=== PATIENT | male | born 1985 | race Caucasian/White ===

== ENCOUNTER → 2017-11-23 | Outpatient (CLI) | payer BC ==
[~2017-11-23] MED LIST: MULTIVITAMIN1 CTB PO; NATURAL MAGNES200 MG PO; PROBIOTIC-MAJOR PO; VITAMIN B COMPL1 SGL PO; VITAMIN D32000 I1 PO
== END ==
LOC: COL.RAD 08:15
DX: R19.09 Other intra-abdominal and pelvic swelling, mass and lump (principal)

== ENCOUNTER 2019-01-22 15:11 | Emergency (ER) | payer BC ==
[~2019-01-22] VITALS: Ht 175.3 cm; Wt 75.0 kg
[2019-01-22 15:25] VITALS: BP 131/78; TEMP 97.2
[2019-01-22] MEDS ORDERED: ZYRTEC 10MG10 MG PO (16:02)
[2019-01-22 17:45] VITALS: PULSE 80
== END 2019-01-22 17:45 | disposition home or self-care (01) ==
LOC: COL.ER 15:11
DX: Z20.3 Contact with and (suspected) exposure to rabies (principal)
CPT/HCPCS: 90375

== ENCOUNTER 2019-01-25 08:34 | Outpatient (RCR) | payer BC ==
[~2019-01-25 08:34] MED LIST changes: +ZYRTEC 10MG10 MG PO
[2019-02-05 09:43] VITALS: BP 120/65; PULSE 61; TEMP 97
== END 2019-04-25 | disposition home or self-care (01) ==
LOC: EUO
DX: Z20.3 Contact with and (suspected) exposure to rabies (principal); Z23 Encounter for immunization

== ENCOUNTER 2019-04-14 19:44 | Emergency (ER) | payer BC ==
[~2019-04-14] VITALS: Ht 175.3 cm; Wt 72.7 kg
[2019-04-14 19:47] VITALS: TEMP 98.3
[2019-04-14 21:05] VITALS: BP 132/73; PULSE 64
== END 2019-04-14 21:14 | disposition home or self-care (01) ==
LOC: COL.ER 19:44
DX: S20.212A Contusion of left front wall of thorax, initial encounter (principal); Z88.2 Allergy status to sulfonamides; Z98.890 Other specified postprocedural states; X50.1XXA Overexertion from prolonged static or awkward postures, initial encounter; Y92.009 Unspecified place in unspecified non-institutional (private) residence as the place of occurrence of the external cause

== ENCOUNTER 2022-05-21 09:36 | Emergency (ER) | payer BC ==
[~2022-05-21] VITALS: Ht 175.3 cm; Wt 78.2 kg
[2022-05-21 09:44] VITALS: BP 123/79; TEMP 98.1
[2022-05-21 10:19] VITALS: PULSE 72
== END 2022-05-21 10:19 | disposition home or self-care (01) ==
LOC: COL.ER 09:36
DX: Z20.3 Contact with and (suspected) exposure to rabies (principal); Z28.310 Unvaccinated for COVID-19